=== PATIENT | male | born 1995 | race American Indian/Alaskan Native ===

== ENCOUNTER 2017-11-04 22:06 | Inpatient (IN) | payer OTHER ==
[2017-11-04] MEDS ORDERED: NACL 0.9% 500 ML 500 ML IV ONE (22:54)
[2017-11-04] MEDS ORDERED: TYLENOL ONE (23:03)
[2017-11-04] MEDS ORDERED: TYLENOL PO ONE (23:08)
[2017-11-04 23:22] LABS: Hematocrit 47.7 % (35.5-45.6); Hemoglobin 15.8 gm/dl (11.8-15.2); Mean Corpuscular HGB Conc 33 % (32-34); Mean Corpuscular Hemoglobin 27 pg (28-32); Mean Corpuscular Volume 83 fl (84-94); Platelet Count 339 K/mm3 (140-440); Red Blood Count 5.78 M/mm3 (3.65-5.03); Red Cell Distribution Width 14.4 % (13.2-15.2)
[2017-11-04 23:33] LABS: INR 0.96 (0.87-1.13)
[2017-11-04] MEDS: ZOSYN/NS 3.375GM/50ML 3.375 GM/50 ML BAG IV ONE (23:45)
--- NOTE | 2017-11-04 23:45 | XRay Report ---
FINAL REPORT PROCEDURE: XR CHEST 1V AP TECHNIQUE: Chest radiograph anteroposterior view. CPT 09640 HISTORY: possible Sepsis COMPARISON: No prior studies are available for comparison. FINDINGS: Heart: Normal. Mediastinum/Vessels: Normal. Lungs/Pleural space: Normal. Bony thorax: No acute osseous abnormality. Life support devices: None. IMPRESSION: No acute cardiopulmonary abnormality.
[2017-11-04 23:47] LABS: Alanine Aminotransferase 53 units/L (7-56); Albumin 4.9 g/dL (3.9-5); BUN/Creatinine Ratio 8; Blood Urea Nitrogen 8 mg/dL (9-20); Calcium 9.9 mg/dL (8.4-10.2); Hemolysis Index 8
--- NOTE | 2017-11-04 23:55 | Emergency Department Report ---
ED Fever HPI - General Chief Complaint: Sore Throat Stated Complaint: SWOLLEN TONSILS Time Seen by Provider: 11/04/17 23:35 Source: patient Exam Limitations: no limitations - History of Present Illness Timing/Duration: yesterday Fever Severity/Quality: subjective, greater than 102 F Fever Therapy SURVEY MANAGER: none Associated Symptoms: shortness of breath, sore throat. denies: abdominal pain, chest pain, confusion, cough, diaphoresis, headache, muscle aches, nausea/ vomiting, rash, stiff neck, syncope, weakness ED Review of Systems ROS: Stated complaint: SWOLLEN TONSILS Other details as noted in HPI Constitutional: chills, fever, malaise Eyes: denies: eye pain, eye discharge, vision change ENT: throat pain. denies: ear pain Respiratory: shortness of breath. denies: cough, wheezing Cardiovascular: denies: chest pain, palpitations Endocrine: no symptoms reported Gastrointestinal: denies: abdominal pain, nausea, diarrhea Genitourinary: denies: urgency, dysuria Musculoskeletal: denies: back pain, joint swelling, arthralgia Skin: denies: rash, lesions Neurological: denies: headache, weakness, paresthesias Psychiatric: denies: anxiety, depression Hematological/Lymphatic: denies: easy bleeding, easy bruising ED Past Medical Hx - Past Medical History Previous Medical History?: No - Surgical History Past Surgical History?: No - Family History Family history: no significant - Social History Smoking Status: Never Smoker Substance Use Type: None ED Physical Exam - General Limitations: No Limitations General appearance: alert, in no apparent distress - Head Head exam: Present: atraumatic, normocephalic - Eye Eye exam: Present: normal appearance - ENT ENT exam: Present: mucous membranes moist - Expanded ENT Exam Expanded Mouth exam: Present: tongue normal Throat exam: Positive: tonsillar erythema, tonsillomegaly, tonsillar exudate - Neck Neck exam: Present: normal inspection - Respiratory Respiratory exam: Present: normal lung sounds bilaterally. Absent: respiratory distress - Cardiovascular Cardiovascular Exam: Present: regular rate, normal rhythm. Absent: systolic murmur, diastolic murmur, rubs, gallop - GI/Abdominal GI/Abdominal exam: Present: soft, normal bowel sounds - Rectal Rectal exam: Present: deferred - Extremities Exam Extremities exam: Present: normal inspection - Back Exam Back exam: Present: normal inspection - Neurological Exam Neurological exam: Present: alert, oriented X3 - Psychiatric Psychiatric exam: Present: normal affect, normal mood - Skin Skin exam: Present: warm, dry, intact, normal color. Absent: rash ED Course Vital Signs 11/04/17 11/04/17 11/05/17 22:47 23:10 00:01 Temperature 102.9 F H Pulse Rate 111 H 95 H Respiratory 20 20 19 Rate Blood Pressure 103/68 O2 Sat by Pulse 98 Oximetry 11/05/17 11/05/17 11/05/17 00:15 00:31 00:45 Temperature Pulse Rate 94 H 95 H 89 Respiratory 19 17 24 Rate Blood Pressure O2 Sat by Pulse Oximetry 11/05/17 11/05/17 11/05/17 01:01 01:15 01:31 Temperature Pulse Rate 92 H 91 H 95 H Respiratory 27 H 20 20 Rate Blood Pressure O2 Sat by Pulse Oximetry 11/05/17 11/05/17 11/05/17 01:45 02:01 02:15 Temperature Pulse Rate 88 88 87 Respiratory 19 15 12 Rate Blood Pressure O2 Sat by Pulse Oximetry 11/05/17 11/05/17 02:31 02:40 Temperature 99.3 F Pulse Rate 99 H Respiratory 18 Rate Blood Pressure O2 Sat by Pulse Oximetry - Reevaluation(s) Reevaluation #1: All results discussed with patient. We'll continue to monitor patient. Patient was started originally on admission to the ER on a sepsis protocol. 11/05/17 01:26 Reevaluation #2: Patient's lactic acid is 5.1. We will do CT of his soft tissue neck or to rule out a tonsillar abscess. 11/05/17 02:39 Reevaluation #3: Coastal results with patient. CT shows no tonsillar abscess. We'll consult hospitalist for admission. Agrees with plan of care. Patient agrees to admission. 11/05/17 03:38 - Consultations Consultation #1: Hospitalist consulted. Hospitalist was given full report. Hospitalist agrees to admit. Dr. Guillen to assume care 11/05/17 03:38 ED Medical Decision Making - Lab Data Result diagrams: 11/05/17 05:42 11/05/17 05:42 - EKG Data -: EKG Interpreted by Me EKG shows normal: sinus rhythm, axis, intervals, QRS complexes, ST-T waves Rate: normal - EKG Data Interpretation: normal EKG - Radiology Data Radiology results: report reviewed, image reviewed FINDINGS: Skull and scalp: Normal. Paranasal sinuses: Normal. Nasopharynx: Normal . Oral cavity: There is moderate prominence of the tonsillar soft tissues consistent with tonsillitis. There is prominence of the uvula, uveitis is suspected. There is no evidence of an atypical fluid collection or abscess.. Epiglottis/vallecula: Normal . Larynx/pyriform sinuses: Normal . Thyroid gland: Normal . Lymph nodes: None enlarged . Salivary glands: Normal . Upper thorax: Normal . IMPRESSION: There prominence of the tonsillar soft tissues consistent with tonsillitis. There is prominence of the uvula, uveitis is suspected. There is no evidence of an atypical fluid collection or abscess on this study. The visualized airway is patent. Chest films reviewed. Chest x-ray negative for acute process. - Medical Decision Making Patient is a 21-year-old male that presents emergency room for high fever and throat pain. Patient found to be septic. Patient found to have a lactic acid 2.9 after treatment patient's lactic acid 1-5.1. Patient will be admitted to the hospitalist service for further evaluation and treatment. - Differential Diagnosis sore throat. Strep. [place]. Sepsis. Tonsillar abscess. Critical Care Time: Yes Critical care attestation.: If time is entered above; I have spent that time in minutes in the direct care of this critically ill patient, excluding procedure time. Critical Care Time: 35 minutes for cc time. ED Disposition Clinical Impression: Sore throat, Strep pharyngitis, Tonsillitis, Lactic acidosis, Shortness of breath Fever Qualifiers: Fever type: unspecified Qualified Code(s): R50.9 - Fever, unspecified Sepsis Qualifiers: Sepsis type: Streptococcus group A Qualified Code(s): A40.0 - Sepsis due to streptococcus, group A Disposition: 09 OP ADMIT IP TO THIS HOSP Is pt being admited?: Yes Does the pt Need Aspirin: No Condition: Critical Time of Disposition: 03:45
[2017-11-05 00:12] LABS: Basophils % (Manual) 0 % (0.0-1.8); Total Cells Counted 100
[2017-11-05 00:13] LABS: RBC Morphology Normal
[2017-11-05] MEDS ORDERED: NACL 0.9% 1000 ML 1,000 ML IV ONE ×2 (01:02→03:39)
[2017-11-05] MEDS: ZOSYN/NS 3.375GM/50ML 3.375 GM/50 ML BAG IV ONE (02:48)
--- NOTE | 2017-11-05 03:20 | Cat Scan Report ---
FINAL REPORT PROCEDURE: CT NECK W CON TECHNIQUE: Computerized axial tomography of the soft tissue neck was performed following the IV injection of iodinated nonionic contrast. HISTORY: sore throat. tonsilitis. COMPARISON: No prior studies are available for comparison. FINDINGS: Skull and scalp: Normal. Paranasal sinuses: Normal. Nasopharynx: Normal . Oral cavity: There is moderate prominence of the tonsillar soft tissues consistent with tonsillitis. There is prominence of the uvula, uveitis is suspected. There is no evidence of an atypical fluid collection or abscess.. Epiglottis/vallecula: Normal . Larynx/pyriform sinuses: Normal . Thyroid gland: Normal . Lymph nodes: None enlarged . Salivary glands: Normal . Upper thorax: Normal . IMPRESSION: There prominence of the tonsillar soft tissues consistent with tonsillitis. There is prominence of the uvula, uveitis is suspected. There is no evidence of an atypical fluid collection or abscess on this study. The visualized airway is patent.
[2017-11-05] MEDS ORDERED: VANCOMYCIN/NS 1 GM/250 ML 1 GM/250 ML BAG IV ONE (03:46)
[2017-11-05] MEDS ORDERED: VANCOMYCIN PHARMACY TO DOSE IV SCH ×2 (04:00→08:00)
[2017-11-05] MEDS ORDERED: VANCOMYCIN 2,000 MG in NACL 0.9% 500 ML 500 ML IV ONE (04:00)
[2017-11-05] MEDS ORDERED: SODIUM CHLORIDE FLUSH SYRINGE 10 ML IV PRN (05:23)
[2017-11-05] MEDS ORDERED: TYLENOL PO PRN (05:23)
[2017-11-05] MEDS ORDERED: ZOFRAN IV PRN (05:23)
[2017-11-05] MEDS ORDERED: TYLENOL PR PRN (05:23)
--- NOTE | 2017-11-05 05:51 | History and Physical Report ---
History of Present Illness Date of examination: 11/05/17 Date of admission: 11/05/17 05:23 History of present illness: 21-year-old male with no medical problems coming to emergency room because he complained of tonsils swollen, they were painful and he had difficulty breathing. There is no drooling, fever or chills Review of systems Constitutional: no weight loss, chills, fever Ears, eyes, nose, mouth and throat: no nasal congestion, no nasal discharge, no sinus pressure, no vision change, no red eye. Neck: No neck pain or rigidity. Cardiovascular: no chest pain, palpitations Respiratory: no cough Gastrointestinal: no abdominal pain hematochezia Genitourinary : no frequency , no hematuria Musculoskeletal: no joint swelling or muscle ache Integumentary: no rash, no pruritis Neurological: no parathesias, no numbness, no focal weakness Endocrine: no cold or heat intolerance, no polyuria or polydipsia Hematologic/Lymphatic: no easy bruising, no easy bleeding, no gland swelling Allergic/Immunologic: no urticaria, no angioedema. PAST MEDICAL HISTORY: None PAST SURGICAL HISTORY: None SOCIAL HISTORY: No alcohol, no drugs, tobacco FAMILY HISTORY: Hypertension Medications and Allergies Allergies Allergy/AdvReac Type Severity Reaction Status Date / Time No Known Allergies Allergy Verified 11/04/17 23:15 Active Meds: Active Medications Acetaminophen (Tylenol) 650 mg PO Q4H PRN PRN Reason: Pain MILD(1-3)/Fever >100.5/ISAACS Acetaminophen (Tylenol) 650 mg [place] Q4H PRN PRN Reason: Pain MILD(1-3)/Fever >100.5/ISAACS Enoxaparin Sodium (Lovenox) 40 mg SUB-Q QDAY@1000 MARANDA Vancomycin HCl 2,000 mg/ (Sodium Chloride) 540 mls @ 250 mls/hr IV ONCE ONE Stop: 11/05/17 06:09 Last Admin: 11/05/17 04:20 Dose: 250 mls/hr Sodium Chloride (Nacl 0.45% 1000 Ml) 1,000 mls @ 100 mls/hr IV DIRECT MARANDA Ondansetron HCl (Zofran) 4 mg IV Q8H PRN PRN Reason: Nausea And Vomiting Sodium Chloride (Sodium Chloride Flush Syringe 10 Ml) 10 ml IV BID MARANDA Sodium Chloride (Sodium Chloride Flush Syringe 10 Ml) 10 ml IV PRN PRN PRN Reason: LINE FLUSH Vancomycin HCl (Vancomycin Pharmacy To Dose) 1 each IV PKCONSULT MARANDA Exam - Physical Exam Narrative exam: Gen. appearance: Patient lying in bed, no apparent distress HEENT: Normocephalic, atraumatic, pupils equally round and reactive to light, extraocular movement intact, and no sclericterus,. No JVD or thyromegaly or nodule,neck supple, no carotid bruit ,mucous membranes moist, unable to see exudate, tonsils erythematous, swollen Heart: S1, S2, regular rate and rhythm Lungs: Clear bilaterally, breathing comfortable Abdomen: Positive bowel sounds, non-tender, nondistended, no organomegaly Extremity:no edema cyanosis, clubbing Skin: no rash, dry, warm Neuro: Oriented 3, cranial nerves II-12 intact, speech is fluent, motor and sensory intact - Constitutional Vitals: Temp Pulse Resp BP Pulse Ox 99.3 F 99 H 18 103/68 98 11/05/17 02:40 11/05/17 02:31 11/05/17 02:31 11/04/17 22:47 11/04/17 22:47 Results - Labs CBC & Chem 7: 11/04/17 23:00 11/04/17 23:00 Labs: Abnormal lab results 11/04/17 11/04/17 11/04/17 Range/Units 00:37 23:00 23:00 WBC 27.0 H (4.5-11.0) K/mm3 RBC 5.78 H (3.65-5.03) M/mm3 Hgb 15.8 H (11.8-15.2) gm/dl Hct 47.7 H (35.5-45.6) % MCV 83 L (84-94) fl MCH 27 L (28-32) pg Seg Neuts % (Manual) 81.0 H (40.0-70.0) % Lymphocytes % (Manual) 9.0 L (13.4-35.0) % Monocytes % (Manual) 9.0 H (0.0-7.3) % Seg Neutrophils # Man 21.9 H (1.8-7.7) K/mm3 Monocytes # (Manual) 2.4 H (0.0-0.8) K/mm3 Chloride 97.0 L (98-107) mmol/L BUN 8 L (9-20) mg/dL Glucose 125 H (75-100) mg/dL Lactic Acid (0.7-2.0) mmol/L Total Protein 8.3 H (6.3-8.2) g/dL Group A Strep Rapid Positive A (Negative) 11/05/17 Range/Units 01:36 WBC (4.5-11.0) K/mm3 RBC (3.65-5.03) M/mm3 Hgb (11.8-15.2) gm/dl Hct (35.5-45.6) % MCV (84-94) fl MCH (28-32) pg Seg Neuts % (Manual) (40.0-70.0) % Lymphocytes % (Manual) (13.4-35.0) % Monocytes % (Manual) (0.0-7.3) % Seg Neutrophils # Man (1.8-7.7) K/mm3 Monocytes # (Manual) (0.0-0.8) K/mm3 Chloride (98-107) mmol/L BUN (9-20) mg/dL Glucose (75-100) mg/dL Lactic Acid 5.10 H* (0.7-2.0) mmol/L Total Protein (6.3-8.2) g/dL Group A Strep Rapid (Negative) - Imaging and Cardiology Chest x-ray: report reviewed Assessment and Plan Neck cT reviewed Assessment Sepsis Acute tonsillitis Plan Admit medicine Start IV fluid, IV antibiotic, follow culture DVT prophylaxis
[2017-11-05 06:10] LABS: Hematocrit 47.4 % (35.5-45.6); Hemoglobin 15.6 gm/dl (11.8-15.2); Mean Corpuscular HGB Conc 33 % (32-34); Mean Corpuscular Hemoglobin 28 pg (28-32); Mean Corpuscular Volume 83 fl (84-94); Red Blood Count 5.69 M/mm3 (3.65-5.03); Red Cell Distribution Width 14.1 % (13.2-15.2)
[2017-11-05 06:14] LABS: Platelet Count 263 K/mm3 (140-440)
[2017-11-05 07:22] LABS: BUN/Creatinine Ratio 9; Blood Urea Nitrogen 8 mg/dL (9-20); Calcium 9.8 mg/dL (8.4-10.2); Hemolysis Index 11
[2017-11-05 08:20] LABS: Band Neutrophils # (Manual) 2.4 K/mm3; Basophils % (Manual) 0 % (0.0-1.8); Eosinophils % (Manual) 0 % (0.0-4.3); Monocytes % (Manual) 0 % (0.0-7.3); Total Cells Counted 100
--- NOTE | 2017-11-05 08:20 | Progress Note ---
Assessment and Plan Assessment and plan: Patient is a 21 yo man without chronic medical problems who presents with swollen painful tonsils and difficulty breathing. He was admitted today for tonsillitis causing sepsis. * pCXR IMPRESSION: No acute cardiopulmonary abnormality. * CT neck with contrast IMPRESSION: There prominence of the tonsillar soft tissues consistent with tonsillitis. There is prominence of the uvula, uveitis is suspected. There is no evidence of an atypical fluid collection or abscess on this study. The visualized airway is patent. Sepsis with Group A strep due to tonsil infection: consult ID, treat with IV abx , IVF and follow culture Acute tonsillitis: continue abx Suspect peritonsiliar abscess: will ask ID for recommendation History Interval history: Patient was seen and examined. Follow-up on current diagnosis of tonsil infection. Overnight uneventful. Patient denies any chest pain, shortness breath , nausea/vomiting or severe headaches. Imaging, nursing note, chart, labs and old chart reviewed. Discussed with patient. Hospitalist Physical - Physical exam Narrative exam: GEN: WDWN, NAD, Awake, Alert, Orientated x 2 HEENT: NCAT, EOMI, PERRL, OP with enlarged bilateral tonsils with pus close to prominent uvula, airways open NECK: supple, no adenopathy, no thyromegaly, no JVD CVS/HEART: RRR, normal S1S2, pulses present bilaterally CHEST/LUNGS: CTA B, Symmetrical chest expansion, good air entry bilaterally GI/Abdomen: soft, NTND, good bowel sounds, no guarding or rebound /Bladder: no suprapubic tenderness, no CVA or paraspinal tenderness EXT/Skin: no c/c/e, no obvious rash MSK: FROM x 4 Neuro: CN 2-12 grossly intact, no new focal deficits Psych: calm - Constitutional Vitals: Temp Pulse Resp BP Pulse Ox 99.3 F 99 H 18 103/68 98 11/05/17 02:40 11/05/17 02:31 11/05/17 02:31 11/04/17 22:47 11/04/17 22:47 Results - Labs CBC & Chem 7: 11/05/17 05:42 11/05/17 05:42 Labs: Laboratory Last Values WBC 27.0 K/mm3 (4.5-11.0) H 11/05/17 05:42 RBC 5.69 M/mm3 (3.65-5.03) H 11/05/17 05:42 Hgb 15.6 gm/dl (11.8-15.2) H 11/05/17 05:42 Hct 47.4 % (35.5-45.6) H 11/05/17 05:42 MCV 83 fl (84-94) L 11/05/17 05:42 MCH 28 pg (28-32) 11/05/17 05:42 MCHC 33 % (32-34) 11/05/17 05:42 RDW 14.1 % (13.2-15.2) 11/05/17 05:42 Plt Count 263 K/mm3 (140-440) 11/05/17 05:42 Add Manual Diff Complete 11/04/17 23:00 Total Counted 100 11/04/17 23:00 Seg Neutrophils % Pipe Cleaning Machine Operator 11/05/17 05:42 Seg Neuts % (Manual) 81.0 % (40.0-70.0) H 11/04/17 23:00 Band Neutrophils % 0 % 11/04/17 23:00 Lymphocytes % (Manual) 9.0 % (13.4-35.0) L 11/04/17 23:00 Reactive Lymphs % (Man) 0 % 11/04/17 23:00 Monocytes % (Manual) 9.0 % (0.0-7.3) H 11/04/17 23:00 Eosinophils % (Manual) 1.0 % (0.0-4.3) 11/04/17 23:00 Basophils % (Manual) 0 % (0.0-1.8) 11/04/17 23:00 Metamyelocytes % 0 % 11/04/17 23:00 Myelocytes % 0 % 11/04/17 23:00 Promyelocytes % 0 % 11/04/17 23:00 Blast Cells % 0 % 11/04/17 23:00 Nucleated RBC % Not Reportable 11/04/17 23:00 Seg Neutrophils # Man 21.9 K/mm3 (1.8-7.7) H 11/04/17 23:00 Band Neutrophils # 0.0 K/mm3 11/04/17 23:00 Lymphocytes # (Manual) 2.4 K/mm3 (1.2-5.4) 11/04/17 23:00 Abs React Lymphs (Man) 0.0 K/mm3 11/04/17 23:00 Monocytes # (Manual) 2.4 K/mm3 (0.0-0.8) H 11/04/17 23:00 Eosinophils # (Manual) 0.3 K/mm3 (0.0-0.4) 11/04/17 23:00 Basophils # (Manual) 0.0 K/mm3 (0.0-0.1) 11/04/17 23:00 Metamyelocytes # 0.0 K/mm3 11/04/17 23:00 Myelocytes # 0.0 K/mm3 11/04/17 23:00 Promyelocytes # 0.0 K/mm3 11/04/17 23:00 Blast Cells # 0.0 K/mm3 11/04/17 23:00 WBC Morphology Not Reportable 11/04/17 23:00 Hypersegmented Neuts Not Reportable 11/04/17 23:00 Hyposegmented Neuts Not Reportable 11/04/17 23:00 Hypogranular Neuts Not Reportable 11/04/17 23:00 Smudge Cells Not Reportable 11/04/17 23:00 Toxic Granulation Not Reportable 11/04/17 23:00 Toxic Vacuolation Not Reportable 11/04/17 23:00 Dohle Bodies Not Reportable 11/04/17 23:00 Pelger-Huet Anomaly Not Reportable 11/04/17 23:00 Bridget Rods Not Reportable 11/04/17 23:00 Platelet Estimate Not Reportable 11/04/17 23:00 Clumped Platelets Not Reportable 11/04/17 23:00 Plt Clumps, EDTA Not Reportable 11/04/17 23:00 Large Platelets Not Reportable 11/04/17 23:00 Giant Platelets Not Reportable 11/04/17 23:00 Platelet Satelliting Not Reportable 11/04/17 23:00 Plt Morphology Comment Not Reportable 11/04/17 23:00 RBC Morphology Normal 11/04/17 23:00 Dimorphic RBCs Not Reportable 11/04/17 23:00 Polychromasia Not Reportable 11/04/17 23:00 Hypochromasia Not Reportable 11/04/17 23:00 Poikilocytosis Not Reportable 11/04/17 23:00 Anisocytosis Not Reportable 11/04/17 23:00 Microcytosis Not Reportable 11/04/17 23:00 Macrocytosis Not Reportable 11/04/17 23:00 Spherocytes Not Reportable 11/04/17 23:00 Pappenheimer Bodies Not Reportable 11/04/17 23:00 Sickle Cells Not Reportable 11/04/17 23:00 Target Cells Not Reportable 11/04/17 23:00 Tear Drop Cells Not Reportable 11/04/17 23:00 Ovalocytes Not Reportable 11/04/17 23:00 Helmet Cells Not Reportable 11/04/17 23:00 [place] Bodies Not Reportable 11/04/17 23:00 [place] Rings Not Reportable 11/04/17 23:00 Hussain Cells Not Reportable 11/04/17 23:00 Bite Cells Not Reportable 11/04/17 23:00 Crenated Cell Not Reportable 11/04/17 23:00 Elliptocytes Not Reportable 11/04/17 23:00 Acanthocytes (Spur) Not Reportable 11/04/17 23:00 Rouleaux Not Reportable 11/04/17 23:00 Hemoglobin C Crystals Not Reportable 11/04/17 23:00 Schistocytes Not Reportable 11/04/17 23:00 Malaria parasites Not Reportable 11/04/17 23:00 Maximiliano Bodies Not Reportable 11/04/17 23:00 Hem Pathologist Commnt No 11/04/17 23:00 PT 13.3 Sec. (12.2-14.9) 11/04/17 23:00 INR 0.96 (0.87-1.13) 11/04/17 23:00 VBG pH 7.364 (7.320-7.420) 11/04/17 23:00 Sodium 140 mmol/L (137-145) 11/05/17 05:42 Potassium 4.4 mmol/L (3.6-5.0) 11/05/17 05:42 Chloride 96.8 mmol/L (98-107) L 11/05/17 05:42 Carbon Dioxide 25 mmol/L (22-30) 11/05/17 05:42 Anion Gap 23 mmol/L 11/05/17 05:42 BUN 8 mg/dL (9-20) L 11/05/17 05:42 Creatinine 0.9 mg/dL (0.8-1.5) 11/05/17 05:42 Estimated GFR > 60 ml/min 11/05/17 05:42 BUN/Creatinine Ratio 9 % 11/05/17 05:42 Glucose 179 mg/dL (75-100) H 11/05/17 05:42 Lactic Acid 1.40 mmol/L (0.7-2.0) 11/05/17 03:15 Calcium 9.8 mg/dL (8.4-10.2) 11/05/17 05:42 Total Bilirubin 0.40 mg/dL (0.1-1.2) 11/04/17 23:00 AST 29 units/L (5-40) 11/04/17 23:00 ALT 53 units/L (7-56) 11/04/17 23:00 Alkaline Phosphatase 87 units/L (35-129) 11/04/17 23:00 Total Protein 8.3 g/dL (6.3-8.2) H 11/04/17 23:00 Albumin 4.9 g/dL (3.9-5) 11/04/17 23:00 Albumin/Globulin Ratio 1.4 % 11/04/17 23:00 Monoscreen Negative (Negative) 11/05/17 00:06 Group A Strep Rapid Positive (Negative) A 11/04/17 00:37
[2017-11-05] MEDS ORDERED: LOVENOX SUB-Q SCH ×2 (10:00)
--- NOTE | 2017-11-05 10:41 | Consultation ---
History of Present Illness - Reason for Consult Consult date: 11/05/17 Sepsis Requesting physician: JAROCHO MCKENNA - History of Present Illness HPI: 21 yo man without significant PMH who presented to [facility] ER on 11/05 with 1 day history of swollen painful tonsils and difficulty breathing. Pt denies chills. He didn't take his temperature at home. Denies N/V/D, CP, cough, abdominal pain, ISAACS, dysuria. He had another episode of tonsillitis when he was 17 years old and was told that he needed tonsillectomy, but since patient doesn' t have insurance he couldn't afford the surgery. In the emergency room temperature was 102.9, pulse 111, respiratory rate 20, saturation 98%, blood pressure 103/68. Labs showed leukocytosis of 27.0, H&H of 15.8 and 47.7, platelets 339. Bun and creatinine of 8 and 1.0. Lactic acid initially 1.9 and then increase to 5.1. Clarke test was negative. Rapid group A Strep screen was positive. Chest x-ray was negative. CT of the neck showed prominence of the tonsillar soft tissues consistent with tonsillitis and prominence of the uvula, uveitis is suspected with no evidence of an atypical fluid collection or abscess. Visualized airway is patent. Patient was started on vancomycin and Zosyn on 11/05/17. Infectious diseases is consulted to help with further antibiotic recommendations. Microbiology: Blood cultures: 11/04 pending Current Antimicrobials: Zosyn 11/05- Vancomycin 11/05- Previous Antimicrobials: Medications and Allergies Allergies Allergy/AdvReac Type Severity Reaction Status Date / Time No Known Allergies Allergy Verified 11/04/17 23:15 Active Meds: Active Medications Acetaminophen (Tylenol) 650 mg PO Q4H PRN PRN Reason: Pain MILD(1-3)/Fever >100.5/ISAACS Acetaminophen (Tylenol) 650 mg MA Q4H PRN PRN Reason: Pain MILD(1-3)/Fever >100.5/ISAACS Heparin Sodium (Porcine) (Heparin) 5,000 unit SUB-Q Q8HR MARANDA Sodium Chloride (Nacl 0.45% 1000 Ml) 1,000 mls @ 100 mls/hr IV DIRECT MARANDA Vancomycin HCl 2,000 mg/ (Sodium Chloride) 540 mls @ 250 mls/hr IV Q12H MARANDA Ondansetron HCl (Zofran) 4 mg IV Q8H PRN PRN Reason: Nausea And Vomiting Sodium Chloride (Sodium Chloride Flush Syringe 10 Ml) 10 ml IV BID MARANDA Sodium Chloride (Sodium Chloride Flush Syringe 10 Ml) 10 ml IV PRN PRN PRN Reason: LINE FLUSH Vancomycin HCl (Vancomycin Pharmacy To Dose) 1 each IV PKCONSULT MARANDA Review of Systems Constitutional: other (as per HPI.) Physical Examination - Physical Exam Narrative exam: General appearance: AA male, in NAD, A&Ox3. Muffled voice. Eyes: anicteric sclerae, moist conjunctivae; PERRLA HENT: Atraumatic; swollen/enlarged tonsils. No clear exudate. Neck: Trachea midline; supple, no thyromegaly or lymphadenopathy Lungs: CTA, with normal respiratory effort and no intercostal retractions CV: S1,S2. Abdomen: Soft, non-tender; no masses or hepatosplenomegaly Extremities: No peripheral edema or extremity lymphadenopathy Skin: Normal temperature, turgor and texture; no rash, ulcers or subcutaneous nodules Psych: Appropriate affect, alert and oriented to person, place and time. Neuro: alert and oriented x 3. Non-focal. Lines: No CVL / PICC - Constitutional Vitals: Vital Signs Temp Pulse Resp BP Pulse Ox 97.9 F 98 H 18 136/88 100 11/05/17 06:45 11/05/17 06:45 11/05/17 06:45 11/05/17 06:45 11/05/17 06:45 Temperature -Last 24 Hours Temperature 97.9 F Temperature 99.3 F Temperature 102.9 F Results - Labs CBC & Chem 7: 11/05/17 05:42 11/05/17 05:42 Labs: Abnormal lab results 11/04/17 11/04/17 11/04/17 Range/Units 00:37 23:00 23:00 WBC 27.0 H (4.5-11.0) K/mm3 RBC 5.78 H (3.65-5.03) M/mm3 Hgb 15.8 H (11.8-15.2) gm/dl Hct 47.7 H (35.5-45.6) % MCV 83 L (84-94) fl MCH 27 L (28-32) pg Seg Neuts % (Manual) 81.0 H (40.0-70.0) % Lymphocytes % (Manual) 9.0 L (13.4-35.0) % Monocytes % (Manual) 9.0 H (0.0-7.3) % Seg Neutrophils # Man 21.9 H (1.8-7.7) K/mm3 Monocytes # (Manual) 2.4 H (0.0-0.8) K/mm3 Chloride 97.0 L (98-107) mmol/L BUN 8 L (9-20) mg/dL Glucose 125 H (75-100) mg/dL Lactic Acid (0.7-2.0) mmol/L Total Protein 8.3 H (6.3-8.2) g/dL Group A Strep Rapid Positive A (Negative) 11/05/17 11/05/17 11/05/17 Range/Units 01:36 05:42 05:42 WBC 27.0 H (4.5-11.0) K/mm3 RBC 5.69 H (3.65-5.03) M/mm3 Hgb 15.6 H (11.8-15.2) gm/dl Hct 47.4 H (35.5-45.6) % MCV 83 L (84-94) fl MCH (28-32) pg Seg Neuts % (Manual) 85.0 H (40.0-70.0) % Lymphocytes % (Manual) 6.0 L (13.4-35.0) % Monocytes % (Manual) (0.0-7.3) % Seg Neutrophils # Man 23.0 H (1.8-7.7) K/mm3 Monocytes # (Manual) (0.0-0.8) K/mm3 Chloride 96.8 L (98-107) mmol/L BUN 8 L (9-20) mg/dL Glucose 179 H (75-100) mg/dL Lactic Acid 5.10 H* (0.7-2.0) mmol/L Total Protein (6.3-8.2) g/dL Group A Strep Rapid (Negative) Assessment and Plan Assessment: 1) Sepsis: Present on admission, manifested by fever, tachycardia, leukocytosis , increased lactate. Etiology is acute tonsillitis. 2) Acute tonsillitis/uveitis. -Rapid Group A strep positive -CT neck prominence of the tonsillar soft tissues consistent with tonsillitis and prominence of the uvula, uveitis is suspected with no evidence of an atypical fluid collection or abscess. 3) Acute fever. Due to 1). 4) Acute leukocytosis. Due to 1) and also s/p steroids. Plan: -Stop zosyn and vancomycin. -Start unasyn. -CBC in AM. -Check HIV test. -Will f/u Blood cx. Thank you for your consultation, will follow up with you. Michelle Dudley MD Infectious Diseases Specialist [facility] ([facility]) [phone]
[2017-11-05] MEDS: NACL 0.45% 1000 ML 1,000 ML IV SCH (15:25)
[2017-11-05] MEDS: UNASYN/NS 3 GM/100 ML 3 GM/100 ML BAG IV SCH ×2 (15:29→20:35)
[2017-11-05] MEDS: SODIUM CHLORIDE FLUSH SYRINGE 10 ML IV SCH ×2 (15:30→22:12)
[2017-11-05] MEDS ORDERED: VANCOMYCIN 2,000 MG in NACL 0.9% 500 ML 500 ML IV SCH (16:00)
[2017-11-05 19:57] LABS: Bacteria,Urine 3+ /HPF (Negative); Bilirubin,Urine NEG (Negative); Blood,Urine NEG (Negative); Color,Urine Yellow (Yellow); Mucus,Urine FEW /HPF; Protein,Urine <15 mg/dL mg/dL (Negative); Sperm,Urine 1+ /HPF (NP)
[2017-11-06] MEDS: UNASYN/NS 3 GM/100 ML 3 GM/100 ML BAG IV SCH ×2 (02:09→08:42)
[2017-11-06] MEDS: NACL 0.45% 1000 ML 1,000 ML IV SCH (02:15)
[2017-11-06 05:59] LABS: Hematocrit 43.3 % (35.5-45.6); Hemoglobin 14.4 gm/dl (11.8-15.2); Mean Corpuscular HGB Conc 33 % (32-34); Mean Corpuscular Hemoglobin 28 pg (28-32); Mean Corpuscular Volume 83 fl (84-94); Platelet Count 296 K/mm3 (140-440); Red Blood Count 5.24 M/mm3 (3.65-5.03); Red Cell Distribution Width 14.3 % (13.2-15.2)
[2017-11-06 06:34] LABS: BUN/Creatinine Ratio 13; Blood Urea Nitrogen 9 mg/dL (9-20); Calcium 8.9 mg/dL (8.4-10.2); Hemolysis Index 2
--- NOTE | 2017-11-06 07:40 | Progress Note ---
Assessment and Plan Assessment and plan: Patient is a 21 yo man without chronic medical problems who presents with swollen painful tonsils and difficulty breathing. He was admitted today for tonsillitis causing sepsis. * pCXR IMPRESSION: No acute cardiopulmonary abnormality. * CT neck with contrast IMPRESSION: There prominence of the tonsillar soft tissues consistent with tonsillitis. There is prominence of the uvula, uveitis is suspected. There is no evidence of an atypical fluid collection or abscess on this study. The visualized airway is patent. Sepsis with Group A strep due to tonsil infection: consult ID, treat with IV abx , IVF and follow culture, start clear liquid diet Acute tonsillitis: continue abx, HIV negative, wbc decreasing, follow cultures. no peritonsiliar abscess on CT, so ABX and wait on cultures DVT prophylaxis: sq heparin History Interval history: Patient was seen and examined. Follow-up on current diagnosis of tonsil infection. Overnight uneventful. Patient denies any chest pain, shortness breath , nausea/vomiting or severe headaches. Imaging, nursing note, chart, labs and old chart reviewed. Discussed with patient. Hospitalist Physical - Physical exam Narrative exam: GEN: WDWN, NAD, Awake, Alert, Orientated x 2 HEENT: NCAT, EOMI, PERRL, OP with enlarged bilateral tonsils with pus close to prominent uvula, airways open NECK: supple, no adenopathy, no thyromegaly, no JVD CVS/HEART: RRR, normal S1S2, pulses present bilaterally CHEST/LUNGS: CTA B, Symmetrical chest expansion, good air entry bilaterally GI/Abdomen: soft, NTND, good bowel sounds, no guarding or rebound /Bladder: no suprapubic tenderness, no CVA or paraspinal tenderness EXT/Skin: no c/c/e, no obvious rash MSK: FROM x 4 Neuro: CN 2-12 grossly intact, no new focal deficits Psych: calm - Constitutional Vitals: Temp Pulse Resp BP Pulse Ox 98.0 F 76 24 108/47 100 11/06/17 05:32 11/06/17 05:32 11/06/17 05:32 11/06/17 05:32 11/06/17 05:32 Results - Labs CBC & Chem 7: 11/06/17 05:06 11/06/17 05:06 Labs: Laboratory Last Values WBC 21.1 K/mm3 (4.5-11.0) H 11/06/17 05:06 RBC 5.24 M/mm3 (3.65-5.03) H 11/06/17 05:06 Hgb 14.4 gm/dl (11.8-15.2) 11/06/17 05:06 Hct 43.3 % (35.5-45.6) 11/06/17 05:06 MCV 83 fl (84-94) L 11/06/17 05:06 MCH 28 pg (28-32) 11/06/17 05:06 MCHC 33 % (32-34) 11/06/17 05:06 RDW 14.3 % (13.2-15.2) 11/06/17 05:06 Plt Count 296 K/mm3 (140-440) 11/06/17 05:06 Add Manual Diff Complete 11/05/17 05:42 Total Counted 100 11/05/17 05:42 Seg Neutrophils % Material Control Clerk 11/05/17 05:42 Seg Neuts % (Manual) 85.0 % (40.0-70.0) H 11/05/17 05:42 Band Neutrophils % 9.0 % 11/05/17 05:42 Lymphocytes % (Manual) 6.0 % (13.4-35.0) L 11/05/17 05:42 Reactive Lymphs % (Man) 0 % 11/05/17 05:42 Monocytes % (Manual) 0 % (0.0-7.3) 11/05/17 05:42 Eosinophils % (Manual) 0 % (0.0-4.3) 11/05/17 05:42 Basophils % (Manual) 0 % (0.0-1.8) 11/05/17 05:42 Metamyelocytes % 0 % 11/05/17 05:42 Myelocytes % 0 % 11/05/17 05:42 Promyelocytes % 0 % 11/05/17 05:42 Blast Cells % 0 % 11/05/17 05:42 Nucleated RBC % Not Reportable 11/05/17 05:42 Seg Neutrophils # Man 23.0 K/mm3 (1.8-7.7) H 11/05/17 05:42 Band Neutrophils # 2.4 K/mm3 11/05/17 05:42 Lymphocytes # (Manual) 1.6 K/mm3 (1.2-5.4) 11/05/17 05:42 Abs React Lymphs (Man) 0.0 K/mm3 11/05/17 05:42 Monocytes # (Manual) 0.0 K/mm3 (0.0-0.8) 11/05/17 05:42 Eosinophils # (Manual) 0.0 K/mm3 (0.0-0.4) 11/05/17 05:42 Basophils # (Manual) 0.0 K/mm3 (0.0-0.1) 11/05/17 05:42 Metamyelocytes # 0.0 K/mm3 11/05/17 05:42 Myelocytes # 0.0 K/mm3 11/05/17 05:42 Promyelocytes # 0.0 K/mm3 11/05/17 05:42 Blast Cells # 0.0 K/mm3 11/05/17 05:42 WBC Morphology Not Reportable 11/05/17 05:42 Hypersegmented Neuts Not Reportable 11/05/17 05:42 Hyposegmented Neuts Not Reportable 11/05/17 05:42 Hypogranular Neuts Not Reportable 11/05/17 05:42 Smudge Cells Not Reportable 11/05/17 05:42 Toxic Granulation Not Reportable 11/05/17 05:42 Toxic Vacuolation Not Reportable 11/05/17 05:42 Dohle Bodies Not Reportable 11/05/17 05:42 Pelger-Huet Anomaly Not Reportable 11/05/17 05:42 Bridget Rods Not Reportable 11/05/17 05:42 Platelet Estimate Not Reportable 11/05/17 05:42 Clumped Platelets Not Reportable 11/05/17 05:42 Plt Clumps, EDTA Not Reportable 11/05/17 05:42 Large Platelets Not Reportable 11/05/17 05:42 Giant Platelets Not Reportable 11/05/17 05:42 Platelet Satelliting Not Reportable 11/05/17 05:42 Plt Morphology Comment Not Reportable 11/05/17 05:42 RBC Morphology Not Reportable 11/05/17 05:42 Dimorphic RBCs Not Reportable 11/05/17 05:42 Polychromasia Not Reportable 11/05/17 05:42 Hypochromasia Not Reportable 11/05/17 05:42 Poikilocytosis Not Reportable 11/05/17 05:42 Anisocytosis Not Reportable 11/05/17 05:42 Microcytosis Not Reportable 11/05/17 05:42 Macrocytosis Not Reportable 11/05/17 05:42 Spherocytes Not Reportable 11/05/17 05:42 Pappenheimer Bodies Not Reportable 11/05/17 05:42 Sickle Cells Not Reportable 11/05/17 05:42 Target Cells Not Reportable 11/05/17 05:42 Tear Drop Cells Not Reportable 11/05/17 05:42 Ovalocytes Not Reportable 11/05/17 05:42 Helmet Cells Not Reportable 11/05/17 05:42 [place] Bodies Not Reportable 11/05/17 05:42 Spicer Rings Not Reportable 11/05/17 05:42 Honaker Cells Not Reportable 11/05/17 05:42 Bite Cells Not Reportable 11/05/17 05:42 Crenated Cell Not Reportable 11/05/17 05:42 Elliptocytes Not Reportable 11/05/17 05:42 Acanthocytes (Spur) Not Reportable 11/05/17 05:42 Rouleaux Not Reportable 11/05/17 05:42 Hemoglobin C Crystals Not Reportable 11/05/17 05:42 Schistocytes Not Reportable 11/05/17 05:42 Malaria parasites Not Reportable 11/05/17 05:42 Maximiliano Bodies Not Reportable 11/05/17 05:42 Hem Pathologist Commnt No 11/05/17 05:42 PT 13.3 Sec. (12.2-14.9) 11/04/17 23:00 INR 0.96 (0.87-1.13) 11/04/17 23:00 VBG pH 7.364 (7.320-7.420) 11/04/17 23:00 Sodium 140 mmol/L (137-145) 11/06/17 05:06 Potassium 3.7 mmol/L (3.6-5.0) 11/06/17 05:06 Chloride 100.9 mmol/L (98-107) 11/06/17 05:06 Carbon Dioxide 25 mmol/L (22-30) 11/06/17 05:06 Anion Gap 18 mmol/L 11/06/17 05:06 BUN 9 mg/dL (9-20) 11/06/17 05:06 Creatinine 0.7 mg/dL (0.8-1.5) L 11/06/17 05:06 Estimated GFR > 60 ml/min 11/06/17 05:06 BUN/Creatinine Ratio 13 % 11/06/17 05:06 Glucose 113 mg/dL (75-100) H 11/06/17 05:06 Lactic Acid 1.40 mmol/L (0.7-2.0) 11/05/17 03:15 Calcium 8.9 mg/dL (8.4-10.2) 11/06/17 05:06 Total Bilirubin 0.40 mg/dL (0.1-1.2) 11/04/17 23:00 AST 29 units/L (5-40) 11/04/17 23:00 ALT 53 units/L (7-56) 11/04/17 23:00 Alkaline Phosphatase 87 units/L (35-129) 11/04/17 23:00 Total Protein 8.3 g/dL (6.3-8.2) H 11/04/17 23:00 Albumin 4.9 g/dL (3.9-5) 11/04/17 23:00 Albumin/Globulin Ratio 1.4 % 11/04/17 23:00 Urine Color Yellow (Yellow) 11/04/17 19:30 Urine Turbidity Clear (Clear) 11/04/17 19:30 Urine pH 6.0 (5.0-7.0) 11/04/17 19:30 Ur Specific [place] 1.029 (1.003-1.030) 11/04/17 19:30 Urine Protein <15 mg/dl mg/dL (Negative) 11/04/17 19:30 Urine Glucose (UA) Neg mg/dL (Negative) 11/04/17 19:30 Urine Ketones Neg mg/dL (Negative) 11/04/17 19:30 Urine Blood Neg (Negative) 11/04/17 19:30 Urine Nitrite Neg (Negative) 11/04/17 19:30 Urine Bilirubin Neg (Negative) 11/04/17 19:30 Urine Urobilinogen 2.0 mg/dL (<2.0) 11/04/17 19:30 Ur Leukocyte Esterase Neg (Negative) 11/04/17 19:30 Urine WBC (Auto) 3.0 /HPF (0.0-6.0) 11/04/17 19:30 Urine RBC (Auto) 3.0 /HPF (0.0-6.0) 11/04/17 19:30 U Epithel Cells (Auto) < 1.0 /HPF (0-13.0) 11/04/17 19:30 Urine Bacteria (Auto) 3+ /HPF (Negative) 11/04/17 19:30 Urine Mucus Few /HPF 11/04/17 19:30 Urine Sperm 1+ /HPF (GROUNDS RESTORATION SPECIALIST) 11/04/17 19:30 Monoscreen Negative (Negative) 11/05/17 00:06 HIV 1&2 Antibody Rapid Non react (Non React) 11/06/17 05:06 HIV P24 Antigen Non react (Non React) 11/06/17 05:06 Group A Strep Rapid Positive (Negative) A 11/04/17 00:37
[2017-11-06 08:29] LABS: Basophils % (Manual) 0 % (0.0-1.8); Total Cells Counted 100
[2017-11-06 08:30] LABS: Giant Platelets Rare; Large Platelets Few; Platelet Estimate Cons
[2017-11-06] MEDS: HEPARIN SUB-Q SCH ×2 (08:42→15:08)
[2017-11-06] MEDS: SODIUM CHLORIDE FLUSH SYRINGE 10 ML IV SCH ×2 (08:46→12:13)
--- NOTE | 2017-11-06 09:06 | Progress Note ---
Assessment and Plan Assessment: 1) Sepsis: Present on admission, manifested by fever, tachycardia, leukocytosis , increased lactate. Etiology is acute tonsillitis. Resolved sepsis. 2) Acute tonsillitis/uveitis. -Rapid Group A strep positive -CT neck prominence of the tonsillar soft tissues consistent with tonsillitis and prominence of the uvula, uveitis is suspected with no evidence of an atypical fluid collection or abscess. 3) Acute fever. Due to 1). Resolved. 4) Acute leukocytosis. Due to 1) and also s/p steroids. Improved. Plan: -Will change to augmentin 875 po BID for 9 days. -Ok to d/c per ID. -d/w pt. Michelle Dudley MD Infectious Diseases Specialist [facility] ([facility]) M [phone] Subjective Date of service: 11/06/17 Interval history: Afebrile. Pt feels much better. Can swallow better. He wants to go home. Microbiology: Blood cultures: 11/04 NGTD Rapid HIV negative Current Antimicrobials: Unasyn 11/05- Previous Antimicrobials: Zosyn 11/05- Vancomycin 11/05- Objective - Exam Narrative Exam: General appearance: AA male, in NAD, A&Ox3. Muffled voice. Eyes: anicteric sclerae, moist conjunctivae; PERRLA HENT: Atraumatic; swollen/enlarged tonsils. No clear exudate. Neck: Trachea midline; supple, no thyromegaly or lymphadenopathy Lungs: CTA, with normal respiratory effort and no intercostal retractions CV: S1,S2. Abdomen: Soft, non-tender; no masses or hepatosplenomegaly Extremities: No peripheral edema or extremity lymphadenopathy Skin: Normal temperature, turgor and texture; no rash, ulcers or subcutaneous nodules Psych: Appropriate affect, alert and oriented to person, place and time. Neuro: alert and oriented x 3. Non-focal. Lines: No CVL / PICC - Constitutional Vitals: Vital Signs Temp Pulse Resp BP Pulse Ox 98.0 F 76 24 108/47 100 11/06/17 05:32 11/06/17 05:32 11/06/17 05:32 11/06/17 05:32 11/06/17 05:32 Temperature -Last 24 Hours Temperature 98.0 F Temperature 98.0 F Temperature 97.8 F Temperature 98.2 F - Labs CBC & Chem 7: 11/06/17 05:06 11/06/17 05:06 Labs: Abnormal lab results 11/06/17 11/06/17 Range/Units 05:06 05:06 WBC 21.1 H (4.5-11.0) K/mm3 RBC 5.24 H (3.65-5.03) M/mm3 MCV 83 L (84-94) fl Seg Neuts % (Manual) 78.0 H (40.0-70.0) % Seg Neutrophils # Man 16.5 H (1.8-7.7) K/mm3 Monocytes # (Manual) 1.3 H (0.0-0.8) K/mm3 Creatinine 0.7 L (0.8-1.5) mg/dL Glucose 113 H (75-100) mg/dL
[2017-11-06 11:06] VITALS: BP 105/56
[2017-11-06] MEDS ORDERED: AUGMENTIN 875 MG PO SCH (12:00)
--- NOTE | 2017-11-06 12:25 | Discharge Summary ---
Providers - Providers Date of Admission: 11/05/17 05:23 Date of discharge: 11/06/17 Attending physician: JAROCHO MCKENNA 11/05/17 08:15 Consult to Physician [CONS] Routine Comment: Consulting Provider: CAROLANN ROBIN Physician Instructions: Reason For Exam: sepsis Primary care physician: PROGRAM COUNSELOR Hospitalization Condition: Stable Hospital course: Patient is a 21 yo man without chronic medical problems who presents with swollen painful tonsils and difficulty breathing. He was admitted today for tonsillitis causing sepsis. * pCXR IMPRESSION: No acute cardiopulmonary abnormality. * CT neck with contrast IMPRESSION: There prominence of the tonsillar soft tissues consistent with tonsillitis. There is prominence of the uvula, uveitis is suspected. There is no evidence of an atypical fluid collection or abscess on this study. The visualized airway is patent. Sepsis with Group A strep due to tonsil infection: ok to d/c per ID Acute tonsillitis: continue abx, HIV negative, wbc decreasing, follow cultures. no peritonsiliar abscess on CT, so ABX and wait on cultures Morbid obesity, bmi 45.9: adolescent counselor on lifestyle modification DVT prophylaxis: sq heparin Disposition: DC-01 TO HOME OR SELFCARE Time spent for discharge: 34 minutes Core Measure Documentation - Palliative Care Palliative Care/ Comfort Measures: Not Applicable - Core Measures Any of the following diagnoses?: none - VTE Discharge Requirements Deep Vein Thrombosis/Pulmonary Embolism Present on Admission: No Has pt received <5 days of overlap therapy or INR<2.0: No Anticoagulant overlap therapy prescribed at discharge: No Contraindication No Overlap Therapy order at DC: Not Indicated Exam - Physical Exam Narrative exam: GEN: WDWN, NAD, Awake, Alert, Orientated x 2 HEENT: NCAT, EOMI, PERRL, OP with enlarged bilateral tonsils with pus close to prominent uvula, airways open NECK: supple, no adenopathy, no thyromegaly, no JVD CVS/HEART: RRR, normal S1S2, pulses present bilaterally CHEST/LUNGS: CTA B, Symmetrical chest expansion, good air entry bilaterally GI/Abdomen: soft, NTND, good bowel sounds, no guarding or rebound /Bladder: no suprapubic tenderness, no CVA or paraspinal tenderness EXT/Skin: no c/c/e, no obvious rash MSK: FROM x 4 Neuro: CN 2-12 grossly intact, no new focal deficits Psych: calm - Constitutional Vitals: Temp Pulse Resp BP Pulse Ox 97.7 F 72 18 105/56 98 11/06/17 10:58 11/06/17 10:58 11/06/17 10:58 11/06/17 10:58 11/06/17 10:58 Plan Activity: other (no strenous activity until cleared by PCP or ID) Diet: advance as tolerated Follow up with: PRIMARY MD SWAPNIL [Primary Care Provider] - 7 Days ALEX YIP MD [Staff Physician] - 7 Days Prescriptions: Acetaminophen [Acetaminophen TAB] 325 mg PO Q4H PRN #4 tablet PRN Reason: Pain MILD(1-3)/Fever >100.5/ISAACS Amoxicillin/K Clav Tab [Augmentin 875MG TAB] 1 each PO BID #18 tablet
== END 2017-11-06 16:32 | disposition home or self-care (01) | DRG 872 ==
LOC: ED 22:06 → 3A 11-05 05:23
PROVIDERS: ADMIT Internal Medicine; ATTEND Internal Medicine
DX: A40.0 Sepsis due to streptococcus, group A (principal); E87.2 Acidosis; J02.0 Streptococcal pharyngitis; J02.9 Acute pharyngitis, unspecified; Z68.42 Body mass index [BMI] 45.0-49.9, adult; E66.01 Morbid (severe) obesity due to excess calories; Z82.49 Family history of ischemic heart disease and other diseases of the circulatory system
CPT/HCPCS: 36415; 70491; 71045; 80048; 80053; 81001; 82140; 82805; 85007; 85025; 85610; 86308; 87040; 87086; 87430; 87806; 93005; 93010; 96365; 96366; 96375; 99291; J0295; J1644; J2543; J2930; J3370; J7030; J7040; Q9967

== ENCOUNTER 2018-09-28 16:51 | Emergency (ER) | payer OTHER ==
[2018-09-28] MEDS ORDERED: TYLENOL PO ONE (16:56)
--- NOTE | 2018-09-28 16:56 | Event Note ---
ED Screening Note Date of service: 09/28/18 Time: 16:55 ED Screening Note: This is a 22 y.o. M. that presents to the ER with sore throat for 3 days. This initial assessment/diagnostic orders/clinical plan/treatment(s) is/are subject to change based on patients health status, clinical progression and re- assessment by fellow clinical providers in the ED. Further treatment and workup at subsequent clinical providers discretion. Patient/guardian urged not to elope from the ED as their condition may be serious if not clinically assessed and managed. Initial orders include: Rapid Strep and monostat Analgesics given
[2018-09-28] MEDS ORDERED: TYLENOL ONE (16:58)
[2018-09-28] MEDS ORDERED: DECADRON IM ONE (20:18)
--- NOTE | 2018-09-28 20:18 | Emergency Department Report ---
ED ENT HPI - General Chief complaint: Sore Throat Stated complaint: TONSILITIS Time Seen by Provider: 09/28/18 16:54 Source: patient Mode of arrival: Ambulatory Limitations: No Limitations - History of Present Illness Initial comments: Patient is a 22-year-old male who presents the emergency department complaints of sore throat that began yesterday. He states it hurts to swallow. He has associated fever. He denies any sick contacts. He denies any other symptoms. He denies any past medical history. He denies any allergies to medications. - Related Data Previous Rx's Medication Instructions Recorded Last Taken Type Acetaminophen [Acetaminophen TAB] 325 mg PO Q4H PRN #4 tablet 11/06/17 Unknown Rx Amoxicillin/K Clav Tab [Augmentin 1 each PO BID #18 tablet 11/06/17 Unknown Rx 875MG TAB] Amoxicillin [Trimox] 500 mg PO BID 10 Days #40 capsule 09/28/18 Unknown Rx Allergies Allergy/AdvReac Type Severity Reaction Status Date / Time No Known Allergies Allergy Verified 09/28/18 16:52 ED Dental HPI - General Chief complaint: Sore Throat Stated complaint: TONSILITIS Time Seen by Provider: 09/28/18 16:54 Source: patient Mode of arrival: Ambulatory Limitations: No Limitations - Related Data Previous Rx's Medication Instructions Recorded Last Taken Type Acetaminophen [Acetaminophen TAB] 325 mg PO Q4H PRN #4 tablet 11/06/17 Unknown Rx Amoxicillin/K Clav Tab [Augmentin 1 each PO BID #18 tablet 11/06/17 Unknown Rx 875MG TAB] Amoxicillin [Trimox] 500 mg PO BID 10 Days #40 capsule 09/28/18 Unknown Rx Allergies Allergy/AdvReac Type Severity Reaction Status Date / Time No Known Allergies Allergy Verified 09/28/18 16:52 ED Review of Systems ROS: Stated complaint: TONSILITIS Other details as noted in HPI Comment: All other systems reviewed and negative ED Past Medical Hx - Past Medical History Hx Congestive Heart Failure: No Hx Diabetes: No Hx Asthma: No Hx COPD: No Hx HIV: No - Social History Smoking Status: Never Smoker - Medications Home Medications: Home Medications Medication Instructions Recorded Confirmed Last Taken Type Acetaminophen [Acetaminophen TAB] 325 mg PO Q4H PRN #4 tablet 11/06/17 Unknown Rx Amoxicillin/K Clav Tab [Augmentin 1 each PO BID #18 tablet 08/06/18 Unknown Rx 875MG TAB] Amoxicillin [Trimox] 500 mg PO BID 10 Days #40 capsule 09/28/18 Unknown Rx ED Physical Exam - General Limitations: No Limitations General appearance: alert, in no apparent distress - Head Head exam: Present: atraumatic, normocephalic - Eye Eye exam: Present: normal appearance, PERRL - ENT ENT exam: Present: mucous membranes moist, other (posterior oropharynx erythema with tonsillar hypertrophy, no exudates, uvula is midline, no uvular edema) - Respiratory Respiratory exam: Present: normal lung sounds bilaterally. Absent: respiratory distress, wheezes, rales, rhonchi, stridor, chest wall tenderness, accessory muscle use, decreased breath sounds, prolonged expiratory - Cardiovascular Cardiovascular Exam: Present: regular rate, normal rhythm, normal heart sounds. Absent: systolic murmur, diastolic murmur, rubs, gallop - Neurological Exam Neurological exam: Present: alert, oriented X3 - Psychiatric Psychiatric exam: Present: normal affect, normal mood - Skin Skin exam: Present: warm, dry, intact ED Course Vital Signs 09/28/18 09/28/18 09/28/18 16:54 20:30 20:55 Temperature 101.5 F H 99 F Pulse Rate 104 H 103 H 67 Respiratory 16 16 18 Rate Blood Pressure 124/85 Blood Pressure 140/88 115/60 [Left] O2 Sat by Pulse 98 97 100 Oximetry ED Medical Decision Making - Lab Data Lab Results 09/28/18 09/28/18 Range/Units 17:01 Unknown Monoscreen Negative (Negative) Group A Strep Rapid Positive A (Negative) Vital Signs 09/28/18 09/28/18 09/28/18 16:54 20:30 20:55 Temperature 101.5 F H 99 F Pulse Rate 104 H 103 H 67 Respiratory 16 16 18 Rate Blood Pressure 124/85 Blood Pressure 140/88 115/60 [Left] O2 Sat by Pulse 98 97 100 Oximetry - Medical Decision Making Patient is a 22-year-old male who presents the emergency department complaints of sore throat that began yesterday. He states it hurts to swallow. He has associated fever. He denies any sick contacts. He denies any other symptoms. He denies any past medical history. He denies any allergies to medications. Patient afebrile in the emergency department given Tylenol and fever resolved. On exam posterior oropharynx erythema with tonsillar hypertrophy. Patient is tolerating secretions, uvula is midline. Given dexamethasone on the emergency department. given prescription for amoxicillin. Advised to take as prescribed to completion. Throw away toothbrush, may gargle with warm salt water as needed, do not drink after others. Drink plenty of fluids. May take Tylenol or ibuprofen for fever. Follow-up with primary care doctor in the next 2-3 days. Return to the emergency room for new or any new or worsening symptoms. Critical care attestation.: If time is entered above; I have spent that time in minutes in the direct care of this critically ill patient, excluding procedure time. ED Disposition Clinical Impression: Strep pharyngitis Disposition: - TO HOME OR SELFCARE Is pt being admited?: No Does the pt Need Aspirin: No Condition: Stable Instructions: Strep Throat (ED) Additional Instructions: Please take medication as prescribed to completion. Throw away toothbrush, may gargle with warm salt water as needed, do not drink after others. Drink plenty of fluids. May take Tylenol or ibuprofen for fever. Follow-up with primary care doctor in the next 2-3 days. Return to the emergency room for new or any new or worsening symptoms. Prescriptions: Amoxicillin [Trimox] 500 mg PO BID 10 Days #40 capsule Referrals: [facility] [Outside] - 2-3 Days [facility] [Provider Group] - 2-3 Days Time of Disposition: 20:22 Print Language: CROATIAN
[2018-09-28 20:56] VITALS: BP 115/60
== END 2018-09-28 20:54 | disposition home or self-care (01) ==
LOC: ED 16:51
DX: J02.0 Streptococcal pharyngitis (principal)
CPT/HCPCS: 36415; 86308; 87430; 96372; 99283; J1100